=== PATIENT | female | born 1965 | race Caucasian/White ===

== ENCOUNTER → 2018-01-12 | Outpatient (CLI) | payer OTHER | END | disposition home or self-care (01) | LOC: KCIC MAMMO 07:49 | DX: Z12.31 Encounter for screening mammogram for malignant neoplasm of breast (principal) | CPT/HCPCS: 77063; 77067 ==

== ENCOUNTER → 2019-07-25 | Outpatient (CLI) | payer OTHER ==
--- NOTE | 2019-07-25 15:53 | KCIC ---
EXAM: Bilateral digital screening mammogram with tomosynthesis. HISTORY: 54-year-old female presents for screening mammography. TECHNIQUE: Full-field digital craniocaudal and mediolateral oblique 2D and 3D tomosynthesis images of both breasts are obtained for evaluation. Computer aided detection with Kapta[employer] software version 9.3 was applied. COMPARISON: 01/12/2018 BREAST PARENCHYMAL DENSITY: Level B - Scattered fibroglandular densities. FINDINGS: There is been slight interval increase in nodularity within the lateral aspect of the left breast at mid depth at the 2:00 position. There are additional areas of nodularity which are stable in appearance. There is no suspicious calcification. There is no architectural distortion. IMPRESSION: BI-RADS Category 0: Additional imaging needed. RECOMMENDATION: Further evaluation with a left breast sonogram targeted to nodularity at the lateral 2:00 position is recommended. If your mammogram demonstrates that you have dense breast tissue, which could hide abnormalities, and if you have other risk factors for breast cancer that have been identified, you might benefit from supplemental screening tests that may be suggested by your ordering physician. Dense breast tissue, in and of itself, is a relatively common condition. This information is not provided to cause undue concern, but rather to raise your awareness and to promote discussion with your physician regarding the presence of other risk factors, in addition to dense breast tissue. A report of your mammography results will be sent to you and your physician. You should contact your physician if you have any questions or concerns regarding this report. Mammography is a sensitive method for finding small breast cancers, but it does not detect them all and is not a substitute for careful clinical examination. A negative mammogram does not negate a clinically suspicious finding and should not result in delay in biopsying a clinically suspicious abnormality. PQRS compliance statement - Patient information was entered into a reminder system with a target due date for the next mammogram. "Our facility is accredited by the [employer] Mammography [employer]." Electronically signed by: Latonya Becerra MD (07/25/2019 3:50 PM) [id number]
== END | disposition home or self-care (01) ==
LOC: KCIC MAMMO 14:34
PROVIDERS: ATTEND Family Medicine
DX: Z12.31 Encounter for screening mammogram for malignant neoplasm of breast (principal)
CPT/HCPCS: 77063; 77067

== ENCOUNTER → 2019-08-08 | Outpatient (CLI) | payer OTHER ==
--- NOTE | 2019-08-08 13:13 | KCIC ---
Left breast ultrasound: Reason for examination: Nodule on screening mammogram. Comparison is made to mammographic exam dated 07/25/2019. Ultrasound examination of the left breast and axilla was performed. In the 2:00 position 5 cm from the nipple, there is a 4.5 mm hypoechoic circumscribed lesion which would correspond with the area of mammographic concern. The appearance would be consistent with a complicated cyst or fibrocystic lesion. No other cystic or solid nodules are seen. No abnormal appearing lymph nodes are seen in the axilla. IMPRESSION: Small 4.5 mm cystic/fibrocystic lesion at the 2:00 position would appear to correspond with the mammographic finding. Recommend 6 month follow-up with ultrasound. BI-RADS Category 3: Probably Benign. "Our facility is accredited by the [employer] Mammography [employer]." This patient's information has been entered into a reminder system for the patient to be notified with the results of her examination and a target date for the next mammogram. Electronically signed by: Trish Sharif MD (08/08/2019 1:10 PM) [id number]
== END | disposition home or self-care (01) ==
LOC: KCIC US 12:41
PROVIDERS: ATTEND Family Medicine
DX: N64.89 Other specified disorders of breast (principal)
CPT/HCPCS: 76641

== ENCOUNTER → 2020-08-28 | Outpatient (CLI) | payer BC ==
--- NOTE | 2020-08-28 16:38 | RAD ---
Examination: 1. Bilateral digital diagnostic mammogram 2. Limited left breast ultrasound. INDICATION: 55-year-old woman due for bilateral mammographic screening presents for short-term follow -up probably benign sonographic findings in the left breast. She is overdue for the short-term follow -up. COMPARISON: Bilateral mammograms of 07/25/2019, 01/12/2018, left breast ultrasound of 08/08/2019. TECHNIQUE: Bilateral CC and MLO views were obtained with 2-D and 3-D technique and reviewed with comp uter-aided detection. Targeted ultrasound of the left breast in the upper-outer quadrant was performe d. FINDINGS: Scattered fibroglandular densities. No dominant mass, suspicious calcification or architectural disto rtion. Nodularity recall from screening in the upper inner left breast is not as apparent on this examinatio n. Targeted ultrasound of the left breast in the area of sonographic interest revealed no persistent son ographic findings. The hypoechoic 4.5 mm circumscribed lesion previously evident at the 2:00 position 5 cm from the nipple is not reproduced on this examination. No left axillary adenopathy. IMPRESSION: Negative bilateral mammogram and targeted left breast ultrasound. No evidence of malignancy. BI-RADS Category 1 Negative Recommend return to routine screening next due in one year. Patient entered into a reminder system with targeted due date for next mammogram. Electronically signed by: Miri Barragan MD (08/28/2020 4:36 PM) [id number]
== END ==
LOC: MAMMO 12:54
PROVIDERS: ATTEND Family Medicine
DX: R92.8 Other abnormal and inconclusive findings on diagnostic imaging of breast (principal)
CPT/HCPCS: 76641; 77066; G0279; 77062

== ENCOUNTER → 2021-09-05 | Outpatient (CLI) | payer BC ==
--- NOTE | 2021-09-05 10:49 | KCIC ---
Bilateral digital screening mammograms with 3-D tomosynthesis: Reason for examination: Routine screening. Comparison is made to previous studies dated back to 06/22/2013. Bilateral mammograms in CC and oblique projections were obtained with 2-D imaging and 3-D tomosynthes is imaging on a Siemens Inspiration unit and reviewed on the workstation. Interpretation was made wit h the benefit of CAD. The skin and nipples show no abnormalities. No abnormal axillary lymph nodes are seen. The breast par enchyma shows scattered fatty and fibroglandular density. (Breast density: Category B.) There is a sm all nodule consistent with intramammary lymph node in the 2:00 B position of the left breast which is stable. There are no new dominant masses, suspicious calcifications or architectural distortion. Impression: No evidence of malignancy. Recommend routine screening. BI-RAD Category 2: Benign. "Our facility is accredited by the [employer] Mammography [employer]." This patient's information has been entered into a reminder system for the patient to be notified wit h the results of her examination and a target date for the next mammogram. Electronically signed by: Trish Sharif MD (09/05/2021 10:47 AM) [id number]
== END ==
LOC: KCIC MAMMO 09:45
PROVIDERS: ATTEND Family Medicine
DX: Z12.31 Encounter for screening mammogram for malignant neoplasm of breast (principal)
CPT/HCPCS: 77063; 77067